=== PATIENT | male | born 1995 | race Two or more races ===

== ENCOUNTER 2020-09-16 18:30 | Emergency (ER) | payer OTHER ==
[~2020-09-16] VITALS: Ht 170.2 cm; Wt 54.4 kg
[2020-09-17] MEDS ORDERED: BENZONATATE150 MG PO (00:54)
[2020-09-17] MEDS ORDERED: ZYRTEC10 M3 PO (00:54)
[2020-09-17] MEDS ORDERED: FLONASE ALLERG9.9 ML NASAL (00:54)
== END 2020-09-17 01:02 | disposition home or self-care (01) ==
LOC: ER 18:30
DX: J32.8 Other chronic sinusitis (principal); J06.9 Acute upper respiratory infection, unspecified; Z20.822 Contact with and (suspected) exposure to COVID-19

== ENCOUNTER 2021-01-14 15:41 | Emergency (ER) | payer OTHER ==
[~2021-01-14] VITALS: Ht 170.2 cm; Wt 60.3 kg
[~2021-01-14 15:41] MED LIST: BENZONATATE150 MG PO; FLONASE ALLERG9.9 ML NASAL; ZYRTEC10 M3 PO
[2021-01-14] MEDS ORDERED: NORFLEX100MG PO (18:22)
== END 2021-01-14 18:33 | disposition home or self-care (01) ==
LOC: ER 15:41
DX: S20.222A Contusion of left back wall of thorax, initial encounter (principal); S40.012A Contusion of left shoulder, initial encounter; Y92.89 Other specified places as the place of occurrence of the external cause; W10.8XXA Fall (on) (from) other stairs and steps, initial encounter

== ENCOUNTER 2025-01-14 16:45 | Emergency (ER) | payer OTHER ==
[~2025-01-14] VITALS: Ht 170.2 cm; Wt 59.0 kg
[~2025-01-14 16:45] MED LIST changes: +NORFLEX100MG PO
[2025-01-14] MEDS ORDERED: FAMOTIDINE/PF 20 MG in 0.9 % SODIUM CHLORIDE 8 ML IV PUSH ONE (19:15)
[2025-01-14] MEDS ORDERED: ACETAMINOPHEN 500 MG GEL..CAP PO ONE (19:15)
[2025-01-14] MEDS ORDERED: LABETALOL HCL 200 MG/40 ML VIAL IV ONE (19:15)
[2025-01-14 20:34] LABS: BASO % 0.4 % (0.1-1.2); EOS # 0.00 (0.04-0.54); EOS % 0.0 % (0.7-7.0); LYMPH # 1.15 (1.18-3.74); LYMPH % 16.5 % (19.3-53.1); MEAN PLATELET VOLUME 10.00 fl (9.4-12.4); MONO # 0.79 (0.24-0.82); MONO % 11.3 % (4.7-12.5); NEUT # 5.00 (1.56-6.13); NEUT % 71.5 % (34.0-71.1); RED CELL DISTRIBUTION WIDTH 15.9 % (11.6-14.4)
[2025-01-14 20:58] LABS: INR 0.98
[2025-01-14 21:04] LABS: ALT/SGPT 103.0 U/L (12-78); AST/SGOT 87.0 U/L (15-37); BILIRUBIN TOTAL 0.88 mg/dL (0.3-1.2); BUN CREA RATIO 17.0 (7.0-25.0); CREATININE SERUM 0.77 mg/dL (0.70-1.30); GFR 117.84; GLOBULINA 4.0 G/DL (2.4-3.5); GLUCOSE FASTING 77.0 mg/dL (65-100); OSMOLALITY SERUM 284.0 MOSM/KG (275-295)
[2025-01-15] MEDS ORDERED: COZAAR25 MG PO (00:14)
== END 2025-01-15 01:19 | disposition home or self-care (01) ==
LOC: ER 16:46
PROVIDERS: General Practice
DX: F41.8 Other specified anxiety disorders (principal); I10 Essential (primary) hypertension; I16.9 Hypertensive crisis, unspecified